=== PATIENT | female | born 1965 | race African-American/Black ===

== ENCOUNTER 2022-06-09 07:42 | Emergency (ER) | payer OTHER ==
[2022-06-09] MEDS ORDERED: Dexamethasone 4 MG TAB ONE ×2 (08:23→08:26)
[2022-06-09] MEDS ORDERED: Ibuprofen 200 MG TAB ONE (08:24)
== END 2022-06-09 08:24 | disposition home or self-care (01) ==
LOC: CSHERS 07:42
DX: M54.41 Lumbago with sciatica, right side (principal); E11.9 Type 2 diabetes mellitus without complications
CPT/HCPCS: 99283; J8540